=== PATIENT | female | born 1965 | race American Indian/Alaskan Native ===

== ENCOUNTER 2017-03-04 14:06 | Outpatient (CLI) | payer BC ==
--- NOTE | 2017-03-05 14:12 | Mammography Report ---
BILATERAL DIGITAL SCREENING MAMMOGRAM with CAD: 03/04/17 14:06:00 CLINICAL: Routine screening. COMPARISON:08/27/15 and 03/25/12 FINDINGS: The breasts are mostly fatty with a few bilateral scattered fibroglandular densities. No mass, architectural distortion or suspicious calcifications. IMPRESSION: No mammographic evidence of malignancy. BI-RADS CATEGORY: 2 -- Benign RECOMMENDATION: Routine mammographic screening in one year. COMMENT: Patient follow-up letters are generated by our [employer] application.
== END 2017-03-04 14:07 | disposition home or self-care (01) ==
LOC: SPVWC 14:06
PROVIDERS: ATTEND Obstetrics & Gynecology
DX: Z12.31 Encounter for screening mammogram for malignant neoplasm of breast (principal)
CPT/HCPCS: 77067; G0202

== ENCOUNTER 2017-03-19 13:38 | Outpatient (CLI) | payer BC ==
--- NOTE | 2017-03-19 14:21 | XRay Report ---
CHEST WITH LEFT RIB DETAIL FOUR VIEWS: 03/19/17 13:38:00 CLINICAL: Chest wall pain. FINDINGS: No rib fracture or rib lesion.The lungs are normally expanded and clear. No pneumothorax. The heart is large. Normal pulmonary vessels. Lungs are clear. Normal soft tissues. IMPRESSION: Negative with no rib fracture or rib lesion identified.
== END 2017-03-19 13:39 | disposition home or self-care (01) ==
LOC: SPVIMAG 13:38
PROVIDERS: ATTEND Internal Medicine
DX: I51.7 Cardiomegaly (principal); R07.81 Pleurodynia